=== PATIENT | male | born 1990 | race Caucasian/White ===

== ENCOUNTER 2017-12-07 15:03 | Emergency (ER) | payer OTHER ==
[2017-12-07] MEDS: CLINDAMYCIN 300 MG INJ IM (16:33)
== END 2017-12-07 18:02 | disposition home or self-care (01) ==
LOC: FTE 15:03
DX: J02.9 Acute pharyngitis, unspecified (principal)
CPT/HCPCS: 96372; 99284-25

== ENCOUNTER 2018-08-24 08:31 | Emergency (ER) | payer OTHER ==
[2018-08-24 10:44] LABS: TROPONIN-I < 0.012 ng/ml (0.000-0.120)
== END 2018-08-24 11:18 | disposition home or self-care (01) ==
LOC: FTE 08:31
DX: R07.89 Other chest pain (principal)
CPT/HCPCS: 84484; 93005; 99284-25

== ENCOUNTER 2018-10-13 12:23 | Emergency (ER) | payer OTHER ==
[2018-10-13] MEDS: FLUORESCEIN STRIP RIGHT EYE (13:09)
== END 2018-10-13 14:10 | disposition home or self-care (01) ==
LOC: FTE 14:10
DX: S05.01XA Injury of conjunctiva and corneal abrasion without foreign body, right eye, initial encounter (principal); X58.XXXA Exposure to other specified factors, initial encounter; Y92.9 Unspecified place or not applicable
CPT/HCPCS: 99283; Z7502

== ENCOUNTER 2018-10-14 12:28 | Emergency (ER) | payer OTHER | END 2018-10-14 13:28 | disposition home or self-care (01) | LOC: FTE 12:28 | DX: S05.01XD Injury of conjunctiva and corneal abrasion without foreign body, right eye, subsequent encounter (principal); X58.XXXD Exposure to other specified factors, subsequent encounter | CPT/HCPCS: 99282; Z7502 ==

== ENCOUNTER 2018-11-03 14:31 | Emergency (ER) | payer OTHER ==
[2018-11-03] MEDS: IBUPROFEN 800 MG TAB PO (14:55)
== END 2018-11-03 15:11 | disposition home or self-care (01) ==
LOC: FTE 14:31
DX: F41.9 Anxiety disorder, unspecified (principal); R07.9 Chest pain, unspecified
CPT/HCPCS: 93005; 99283-25